=== PATIENT | female | born 1950 | race Two or more races ===

== ENCOUNTER 2017-01-10 14:11 | Inpatient (IN) | payer BC ==
[2017-01-10] VITALS (8 sets, daily range): BP systolic 150–192; BP diastolic 66–76
[~2017-01-10] VITALS: Ht 157.5 cm; Wt 67.6 kg
[2017-01-10] MEDS ORDERED: DEXTROSE (50%) 50ML SYRG IV PRN (15:30)
[2017-01-10] MEDS ORDERED: NITROGLYCERIN 0.4 MG SL TAB SL PRN ×2 (15:30)
[2017-01-10] MEDS ORDERED: MORPHINE SULF INJ 2 MG/ML SYRINGE 1ML IV PRN ×2 (15:30)
[2017-01-10] MEDS ORDERED: ASPirin-EC 81 mg tab PO ONE (15:58)
[2017-01-10] MEDS ORDERED: PARoxetine 20 MG TAB PO ONE (16:00)
[2017-01-10] MEDS ORDERED: CLOPIDOGREL BISULFATE 75 MG TAB PO ONE (16:00)
[2017-01-10] MEDS ORDERED: LOSARTAN POTASSIUM 50 MG TAB PO ONE (16:00)
[2017-01-10 16:34] LABS: Basophils # (auto) 0 uL; Basophils % (auto) 0.4 % (0.0-2.0); Eosinophils # (auto) 0.2 uL; Eosinophils % (auto) 2.1 % (0.0-7.0); Hematocrit 43.4 % (36.0-46.0); Hemoglobin 14.4 g/dL (12.2-16.2); Lymphocytes # (auto) 2.1 uL; Lymphocytes % (auto) 22.7 % (10.0-50.0); Mean Corpuscular Hemoglobin 30.9 pg (28.0-32.0); Mean Corpuscular Hgb Conc. 33.2 g/dL (32.0-36.0); Mean Corpuscular Volume 92.9 fL (80.0-100.0); Monocytes # (auto) 0.9 uL; Monocytes % (auto) 10.1 % (0.0-12.0); Neutrophils # (auto) 5.9 uL; Neutrophils % (auto) 64.7 % (37.0-80.0); Platelet Count (auto) 232 10^3/uL (140-450); Red Cell Distribution Width 13.4 % (11.6-16.0); White Blood Cell 9.1 10^3/uL (4.4-10.8)
[2017-01-10 16:54] LABS: Albumin 3.3 g/dL (3.4-5.0); Calcium 9.1 mg/dL (8.5-10.1); Chloride 101 mmol/L (98-107); Potassium 3.7 mmol/L (3.5-5.1); Sodium 138 mmol/L (136-145)
[2017-01-10 16:57] LABS: Anion Gap 10 (5-15); Aspartate Aminotransferase 33 U/L (15-37); BUN/Creatinine Ratio 11.9; Blood Urea Nitrogen 8 mg/dL (7-18); Carbon Dioxide 27 mmol/L (21-32); GFR African American 113 mL/min; GFR Non-African American 93 mL/min; Glucose 268 mg/dL (74-106)
[2017-01-10] MEDS: InsuLIN REG 1unit/0.01ml Soln (100units/ml) SC SCH ×2 (17:00→22:15)
[2017-01-10 17:02] LABS: Alkaline Phosphatase 108 U/L (45-117); Bilirubin, Total 0.3 mg/dL (0.2-1.0); Total Protein 6.9 g/dL (6.4-8.2)
[2017-01-10] MEDS: ACCU-CHEK COMFORT CURVE STRIP VI SCH ×2 (17:50→22:16)
[2017-01-10] MEDS: hydrALAZINE HCL 20 MG/ML VL IV PRN (17:54)
[2017-01-10 18:08] LABS: Urine Bilirubin Negative (Negative); Urine Blood Negative /uL (Negative); Urine Color Yellow (Yellow); Urine Nitrite Negative (Negative); Urine RBC 3 /hpf (0 - 4); Urine Squamous Epithelial Cell FEW /hpf (<5); Urine Urobilinogen Normal (Negative)
[2017-01-10 18:11] LABS: Urine Glucose 3+ mg/dL (Normal); Urine Ketone 1+ (Negative)
[2017-01-10] MEDS: SODIUM CHLOR 0.9% PF (SALINE LOCK) 10ML VIAL IV SCH (22:04)
[2017-01-10] MEDS: ATORVASTATIN 20 MG TAB PO SCH (22:05)
[2017-01-10] MEDS: METOPROLOL TARTRATE 50 MG TAB PO SCH (22:06)
[2017-01-11] VITALS (14 sets, daily range): BP systolic 146–189; BP diastolic 48–96
[2017-01-11] MEDS: hydrALAZINE HCL 20 MG/ML VL IV PRN ×2 (00:28→17:12)
[2017-01-11] MEDS ORDERED: cloNIDine HCL 0.1 MG TAB PO ONE (04:30)
[2017-01-11] MEDS: LEVOTHYROXINE SODIUM 100 MCG TAB PO SCH (06:12)
[2017-01-11] MEDS: SODIUM CHLOR 0.9% PF (SALINE LOCK) 10ML VIAL IV SCH ×3 (06:12→22:18)
[2017-01-11] MEDS: InsuLIN REG 1unit/0.01ml Soln (100units/ml) SC SCH ×4 (06:17→22:21)
[2017-01-11] MEDS: ACCU-CHEK COMFORT CURVE STRIP VI SCH ×4 (06:17→22:17)
[2017-01-11] MEDS: ASPirin-EC 81 mg tab PO SCH (09:35)
[2017-01-11] MEDS: METOPROLOL TARTRATE 50 MG TAB PO SCH (09:36)
[2017-01-11] MEDS: LOSARTAN POTASSIUM 50 MG TAB PO SCH (09:36)
[2017-01-11] MEDS: CLOPIDOGREL BISULFATE 75 MG TAB PO SCH (09:36)
[2017-01-11] MEDS: PARoxetine 20 MG TAB PO SCH (09:36)
[2017-01-11] MEDS: SODIUM CHLORIDE 0.9% 1,000 ML IV SCH (10:36)
[2017-01-11] MEDS ORDERED: MET50T (11:02)
[2017-01-11] MEDS ORDERED: GLIP-116 (11:02)
[2017-01-11] MEDS ORDERED: CLOP75TA41 PO (11:02)
[2017-01-11] MEDS ORDERED: PAR20T (11:02)
[2017-01-11] MEDS ORDERED: LEVO100T8 PO (11:02)
[2017-01-11] MEDS ORDERED: SIMV-13 (11:02)
[2017-01-11] MEDS ORDERED: METF-312 PO (11:02)
[2017-01-11] MEDS: ATORVASTATIN 20 MG TAB PO SCH (22:22)
[2017-01-11] MEDS: METOPROLOL TARTRATE 25 MG TAB PO SCH (22:23)
[2017-01-12] VITALS (7 sets, daily range): BP systolic 154–183; BP diastolic 57–84
[2017-01-12] MEDS: hydrALAZINE HCL 20 MG/ML VL IV PRN ×3 (01:54→17:56)
[2017-01-12] MEDS: SODIUM CHLORIDE 0.9% 1,000 ML IV SCH ×2 (02:55→19:35)
[2017-01-12 05:29] LABS: Basophils # (auto) 0.1 uL; Basophils % (auto) 0.6 % (0.0-2.0); Eosinophils # (auto) 0.3 uL; Eosinophils % (auto) 2.8 % (0.0-7.0); Hematocrit 39.9 % (36.0-46.0); Hemoglobin 13.4 g/dL (12.2-16.2); Lymphocytes % (auto) 22.1 % (10.0-50.0); Mean Corpuscular Hgb Conc. 33.5 g/dL (32.0-36.0); Mean Corpuscular Volume 92.3 fL (80.0-100.0); Mean Platelet Volume 9.2 fL (7.4-10.4); Monocytes % (auto) 11.6 % (0.0-12.0); Neutrophils # (auto) 5.6 uL; Neutrophils % (auto) 62.9 % (37.0-80.0); Platelet Count (auto) 223 10^3/uL (140-450); Red Cell Distribution Width 13.1 % (11.6-16.0)
[2017-01-12 05:50] LABS: Potassium 3.4 mmol/L (3.5-5.1)
[2017-01-12 05:53] LABS: Albumin 3.1 g/dL (3.4-5.0); BUN/Creatinine Ratio 21.8; Calcium 8.7 mg/dL (8.5-10.1)
[2017-01-12 05:56] LABS: Bilirubin, Total 0.5 mg/dL (0.2-1.0); Total Protein 6.3 g/dL (6.4-8.2)
[2017-01-12] MEDS: SODIUM CHLOR 0.9% PF (SALINE LOCK) 10ML VIAL IV SCH ×3 (06:00→22:29)
[2017-01-12] MEDS: ACCU-CHEK COMFORT CURVE STRIP VI SCH ×4 (06:22→22:18)
[2017-01-12] MEDS: InsuLIN REG 1unit/0.01ml Soln (100units/ml) SC SCH ×4 (06:26→22:23)
[2017-01-12] MEDS: LEVOTHYROXINE SODIUM 100 MCG TAB PO SCH (06:29)
[2017-01-12] MEDS: ASPirin-EC 81 mg tab PO SCH (09:59)
[2017-01-12] MEDS: PARoxetine 20 MG TAB PO SCH (09:59)
[2017-01-12] MEDS: LOSARTAN POTASSIUM 50 MG TAB PO SCH (09:59)
[2017-01-12] MEDS: CLOPIDOGREL BISULFATE 75 MG TAB PO SCH (09:59)
[2017-01-12] MEDS: METOPROLOL TARTRATE 25 MG TAB PO SCH (10:00)
[2017-01-12] MEDS ORDERED: POTASSIUM CHLORIDE 20 MEQ, LIDOCAINE 1% (LOCAL ANESTH.) 2 ML in SODIUM CHL 0.9% 100 ML IV ONE (11:15)
[2017-01-12] MEDS ORDERED: MULTIPLE VITAMIN TAB PO ONE (14:30)
[2017-01-12] MEDS ORDERED: MAGNESIUM CITRATE SOLUTION 300 ML BTL PO ONE (14:30)
[2017-01-12] MEDS ORDERED: ASCORBIC ACID 500 MG TAB PO ONE (14:30)
[2017-01-12] MEDS ORDERED: METOPROLOL TARTRATE 25 MG TAB PO ONE (14:30)
[2017-01-12] MEDS ORDERED: LOSARTAN POTASSIUM 50 MG TAB PO ONE (14:30)
[2017-01-12] MEDS: ATORVASTATIN 20 MG TAB PO SCH (22:28)
[2017-01-12] MEDS: ASCORBIC ACID 500 MG TAB PO SCH (22:28)
[2017-01-13] VITALS (7 sets, daily range): BP systolic 133–193; BP diastolic 51–80
[2017-01-13] MEDS: hydrALAZINE HCL 20 MG/ML VL IV PRN ×2 (00:56→06:39)
[2017-01-13] MEDS: SODIUM CHLOR 0.9% PF (SALINE LOCK) 10ML VIAL IV SCH ×3 (06:00→22:07)
[2017-01-13] MEDS: InsuLIN REG 1unit/0.01ml Soln (100units/ml) SC SCH ×4 (06:33→22:05)
[2017-01-13] MEDS: LEVOTHYROXINE SODIUM 100 MCG TAB PO SCH (06:34)
[2017-01-13] MEDS: ACCU-CHEK COMFORT CURVE STRIP VI SCH ×4 (06:34→22:09)
[2017-01-13 06:40] LABS: Potassium 3.7 mmol/L (3.5-5.1)
[2017-01-13 06:43] LABS: Albumin 3.4 g/dL (3.4-5.0); BUN/Creatinine Ratio 18.2
[2017-01-13 06:46] LABS: Bilirubin, Total 0.6 mg/dL (0.2-1.0); Total Protein 6.7 g/dL (6.4-8.2)
[2017-01-13] MEDS: ASCORBIC ACID 500 MG TAB PO SCH ×2 (10:13→22:07)
[2017-01-13] MEDS: CLOPIDOGREL BISULFATE 75 MG TAB PO SCH (10:13)
[2017-01-13] MEDS: MULTIPLE VITAMIN TAB PO SCH (10:13)
[2017-01-13] MEDS: ASPirin-EC 81 mg tab PO SCH (10:13)
[2017-01-13] MEDS: MECLIZINE HCL 25 MG TAB PO PRN (10:13)
[2017-01-13] MEDS: PARoxetine 20 MG TAB PO SCH (10:13)
[2017-01-13] MEDS: NIFEdipine ER 30 MG TAB PO SCH (10:16)
[2017-01-13] MEDS: LOSARTAN POTASSIUM 50 MG TAB PO SCH (10:16)
[2017-01-13] MEDS: METOPROLOL TARTRATE 25 MG TAB PO SCH (10:18)
[2017-01-13] MEDS: SODIUM CHLORIDE 0.9% 1,000 ML IV SCH (12:15)
[2017-01-13] MEDS: HYDROcodone-ACET 5/325MG TAB PO PRN (15:29)
[2017-01-13] MEDS: ATORVASTATIN 20 MG TAB PO SCH (22:07)
[2017-01-14] MEDS: HYDROcodone-ACET 5/325MG TAB PO PRN ×3 (04:34→17:25)
[2017-01-14] MEDS: SODIUM CHLORIDE 0.9% 1,000 ML IV SCH ×3 (04:38→23:01)
[2017-01-14 05:00] VITALS: BP 163/64
[2017-01-14] MEDS: SODIUM CHLOR 0.9% PF (SALINE LOCK) 10ML VIAL IV SCH ×3 (05:52→21:49)
[2017-01-14] MEDS: LEVOTHYROXINE SODIUM 100 MCG TAB PO SCH (05:52)
[2017-01-14] MEDS: hydrALAZINE HCL 20 MG/ML VL IV PRN (05:52)
[2017-01-14] MEDS: InsuLIN REG 1unit/0.01ml Soln (100units/ml) SC SCH ×4 (06:03→22:17)
[2017-01-14 06:22] LABS: Albumin 3.3 g/dL (3.4-5.0); BUN/Creatinine Ratio 22.6; Bilirubin, Total 0.5 mg/dL (0.2-1.0); Calcium 9.3 mg/dL (8.5-10.1); Potassium 3.7 mmol/L (3.5-5.1); Total Protein 6.7 g/dL (6.4-8.2)
[2017-01-14] MEDS: ACCU-CHEK COMFORT CURVE STRIP VI SCH ×4 (06:23→22:29)
[2017-01-14 08:00] VITALS: BP 163/64
[2017-01-14 09:00] VITALS: BP 138/49
[2017-01-14] MEDS ORDERED: metFORMIN HYDROCHLORIDE 500 MG TAB PO ONE (10:00)
[2017-01-14] MEDS: LOSARTAN POTASSIUM 50 MG TAB PO SCH (10:00)
[2017-01-14] MEDS: NIFEdipine ER 30 MG TAB PO SCH (10:49)
[2017-01-14] MEDS: METOPROLOL TARTRATE 25 MG TAB PO SCH (10:49)
[2017-01-14] MEDS: ASPirin-EC 81 mg tab PO SCH (10:50)
[2017-01-14] MEDS: CLOPIDOGREL BISULFATE 75 MG TAB PO SCH (10:50)
[2017-01-14] MEDS: MULTIPLE VITAMIN TAB PO SCH (10:51)
[2017-01-14] MEDS: PARoxetine 20 MG TAB PO SCH (10:51)
[2017-01-14] MEDS: ASCORBIC ACID 500 MG TAB PO SCH ×2 (10:51→21:49)
[2017-01-14 13:00] VITALS: BP 112/72
[2017-01-14] MEDS: MECLIZINE HCL 25 MG TAB PO PRN (13:36)
[2017-01-14 17:25] VITALS: BP_SYST 144; BP_SYST 151; BP_DIAS 53; BP_DIAS 72
[2017-01-14] MEDS: metFORMIN HYDROCHLORIDE 500 MG TAB PO SCH (17:25)
[2017-01-14] MEDS: ATORVASTATIN 20 MG TAB PO SCH (21:49)
[2017-01-14 22:00] VITALS: BP 138/58
[2017-01-15 05:00] VITALS: BP 179/68
[2017-01-15 05:37] LABS: BUN/Creatinine Ratio 19.7; Potassium 3.4 mmol/L (3.5-5.1)
[2017-01-15] MEDS: metFORMIN HYDROCHLORIDE 500 MG TAB PO SCH ×2 (06:18→17:33)
[2017-01-15] MEDS: SODIUM CHLOR 0.9% PF (SALINE LOCK) 10ML VIAL IV SCH ×3 (06:18→21:44)
[2017-01-15] MEDS: LEVOTHYROXINE SODIUM 100 MCG TAB PO SCH (06:18)
[2017-01-15] MEDS: hydrALAZINE HCL 20 MG/ML VL IV PRN ×2 (06:19→18:08)
[2017-01-15] MEDS: ACCU-CHEK COMFORT CURVE STRIP VI SCH ×4 (06:42→22:21)
[2017-01-15] MEDS: InsuLIN REG 1unit/0.01ml Soln (100units/ml) SC SCH ×6 (06:42→22:21)
[2017-01-15 08:00] VITALS: BP 135/61
[2017-01-15 08:18] VITALS: BP 135/61
[2017-01-15] MEDS: HYDROcodone-ACET 5/325MG TAB PO PRN ×2 (09:59→17:34)
[2017-01-15] MEDS: METOPROLOL TARTRATE 25 MG TAB PO SCH (10:00)
[2017-01-15] MEDS: MULTIPLE VITAMIN TAB PO SCH (10:00)
[2017-01-15] MEDS: ASCORBIC ACID 500 MG TAB PO SCH ×2 (10:01→21:44)
[2017-01-15] MEDS: CLOPIDOGREL BISULFATE 75 MG TAB PO SCH (10:01)
[2017-01-15] MEDS: LOSARTAN POTASSIUM 50 MG TAB PO SCH (10:02)
[2017-01-15] MEDS: ASPirin-EC 81 mg tab PO SCH (10:02)
[2017-01-15] MEDS: PARoxetine 20 MG TAB PO SCH (10:02)
[2017-01-15] MEDS: NIFEdipine ER 30 MG TAB PO SCH (10:03)
[2017-01-15] MEDS ORDERED: POTASSIUM CHLORIDE 40 MEQ, LIDOCAINE 1% (LOCAL ANESTH.) 4 ML in SODIUM CHL 0.9% 250 ML IV ONE (11:30)
[2017-01-15 12:32] VITALS: BP 145/61
[2017-01-15 16:44] VITALS: BP 178/62
[2017-01-15] MEDS: ATORVASTATIN 20 MG TAB PO SCH (21:44)
[2017-01-15 22:00] VITALS: BP 153/62
[2017-01-15] MEDS ORDERED: METO25TA5 PO (23:01)
[2017-01-15] MEDS ORDERED: SIMV-8 PO (23:01)
[2017-01-15] MEDS ORDERED: ATOR20TA PO (23:01)
[2017-01-16] MEDS: SODIUM CHLORIDE 0.9% 1,000 ML IV SCH (00:38)
[2017-01-16 05:00] VITALS: BP 161/70
[2017-01-16 06:14] LABS: BUN/Creatinine Ratio 15.4; Calcium 8.4 mg/dL (8.5-10.1); Potassium 3.6 mmol/L (3.5-5.1)
[2017-01-16] MEDS: SODIUM CHLOR 0.9% PF (SALINE LOCK) 10ML VIAL IV SCH ×3 (06:20→21:56)
[2017-01-16] MEDS: LEVOTHYROXINE SODIUM 100 MCG TAB PO SCH (06:21)
[2017-01-16] MEDS: metFORMIN HYDROCHLORIDE 500 MG TAB PO SCH ×2 (06:21→18:02)
[2017-01-16] MEDS: InsuLIN REG 1unit/0.01ml Soln (100units/ml) SC SCH ×4 (06:33→22:16)
[2017-01-16] MEDS: ACCU-CHEK COMFORT CURVE STRIP VI SCH ×4 (06:33→22:16)
[2017-01-16] MEDS: hydrALAZINE HCL 20 MG/ML VL IV PRN ×2 (06:40→18:23)
[2017-01-16 09:12] VITALS: BP 138/60
[2017-01-16] MEDS: ASCORBIC ACID 500 MG TAB PO SCH ×2 (10:00→21:56)
[2017-01-16] MEDS: CLOPIDOGREL BISULFATE 75 MG TAB PO SCH (10:00)
[2017-01-16] MEDS: MULTIPLE VITAMIN TAB PO SCH (10:00)
[2017-01-16] MEDS: PARoxetine 20 MG TAB PO SCH (10:00)
[2017-01-16] MEDS: ASPirin-EC 81 mg tab PO SCH (10:00)
[2017-01-16] MEDS: LOSARTAN POTASSIUM 50 MG TAB PO SCH (10:01)
[2017-01-16] MEDS: NIFEdipine ER 30 MG TAB PO SCH (10:02)
[2017-01-16] MEDS: METOPROLOL TARTRATE 25 MG TAB PO SCH (10:02)
[2017-01-16] MEDS: ONDANSETRON HCL 4 MG/2 ML VIAL IV PRN (10:03)
[2017-01-16 12:11] VITALS: BP 139/51
[2017-01-16] MEDS: HYDROcodone-ACET 5/325MG TAB PO PRN (12:45)
[2017-01-16 16:29] VITALS: BP 171/63
[2017-01-16 21:30] VITALS: BP 152/60
[2017-01-16] MEDS: ATORVASTATIN 20 MG TAB PO SCH (21:56)
[2017-01-17] MEDS: SODIUM CHLORIDE 0.9% 1,000 ML IV SCH ×2 (00:03→15:58)
[2017-01-17] MEDS: HYDROcodone-ACET 5/325MG TAB PO PRN ×2 (03:19→10:41)
[2017-01-17 05:00] VITALS: BP 130/59
[2017-01-17] MEDS: SODIUM CHLOR 0.9% PF (SALINE LOCK) 10ML VIAL IV SCH ×2 (06:26→15:10)
[2017-01-17] MEDS: LEVOTHYROXINE SODIUM 100 MCG TAB PO SCH (06:30)
[2017-01-17] MEDS: ACCU-CHEK COMFORT CURVE STRIP VI SCH ×3 (06:30→17:42)
[2017-01-17] MEDS: InsuLIN REG 1unit/0.01ml Soln (100units/ml) SC SCH ×3 (06:31→17:43)
[2017-01-17 08:00] VITALS: BP 170/72
[2017-01-17] MEDS: metFORMIN HYDROCHLORIDE 500 MG TAB PO SCH ×2 (08:32→17:58)
[2017-01-17 08:51] VITALS: BP 170/72
[2017-01-17] MEDS: CLOPIDOGREL BISULFATE 75 MG TAB PO SCH (09:01)
[2017-01-17] MEDS: MULTIPLE VITAMIN TAB PO SCH (09:02)
[2017-01-17] MEDS: ASCORBIC ACID 500 MG TAB PO SCH (09:02)
[2017-01-17] MEDS: ASPirin-EC 81 mg tab PO SCH (09:02)
[2017-01-17] MEDS: METOPROLOL TARTRATE 25 MG TAB PO SCH (09:02)
[2017-01-17] MEDS: PARoxetine 20 MG TAB PO SCH (09:02)
[2017-01-17] MEDS: LOSARTAN POTASSIUM 50 MG TAB PO SCH (09:03)
[2017-01-17] MEDS: NIFEdipine ER 30 MG TAB PO SCH (09:03)
[2017-01-17] MEDS: hydrALAZINE HCL 20 MG/ML VL IV PRN (10:41)
[2017-01-17] MEDS: ONDANSETRON HCL 4 MG/2 ML VIAL IV PRN (11:50)
[2017-01-17 12:49] VITALS: BP 159/76
[2017-01-17 16:42] VITALS: BP 157/64
[2017-01-17 16:58] VITALS: BP 157/64
== END 2017-01-17 18:32 | DRG 309 ==
LOC: TELE-WESTW 14:11
PROVIDERS: ADMIT Internal Medicine; ATTEND Internal Medicine
DX: R00.1 Bradycardia, unspecified (principal); I69.354 Hemiplegia and hemiparesis following cerebral infarction affecting left non-dominant side; E44.0 Moderate protein-calorie malnutrition; R55 Syncope and collapse; R53.1 Weakness; K21.9 Gastro-esophageal reflux disease without esophagitis; E78.5 Hyperlipidemia, unspecified; E03.9 Hypothyroidism, unspecified; E11.65 Type 2 diabetes mellitus with hyperglycemia; I10 Essential (primary) hypertension; F32.9 Major depressive disorder, single episode, unspecified; Z79.82 Long term (current) use of aspirin; Z90.710 Acquired absence of both cervix and uterus; I25.2 Old myocardial infarction; Z79.02 Long term (current) use of antithrombotics/antiplatelets; Z95.1 Presence of aortocoronary bypass graft; Z88.5 Allergy status to narcotic agent; Z88.1 Allergy status to other antibiotic agents; Z88.8 Allergy status to other drugs, medicaments and biological substances; Z87.440 Personal history of urinary (tract) infections; Z68.27 Body mass index [BMI] 27.0-27.9, adult
CPT/HCPCS: 36415; 71010; 80048; 80053; 81001; 82962; 84484; 85025; 87081; 93005; 97001; 97110; 97116; 97530; J1815; J2001; J2405

== ENCOUNTER 2018-03-17 22:06 | Emergency (ER) | payer BC ==
[~2018-03-17] VITALS: Ht 157.5 cm; Wt 68.0 kg
[~2018-03-17 22:06] MED LIST: GLIP-115 PO; HYDR-4683 PO; LEVO100T8 PO; LOS25T GT; METF-370 PO; NAPR375T27 PO; PAR20T PO
[2018-03-17 22:50] VITALS: BP 172/65
== END 2018-03-17 23:37 | disposition left against medical advice (07) ==
LOC: EDBD 22:06 → ER 22:10
DX: R53.1 Weakness (principal); Z53.21 Procedure and treatment not carried out due to patient leaving prior to being seen by health care provider
CPT/HCPCS: 93005

== ENCOUNTER 2018-07-07 07:04 | Emergency (ER) | payer BC ==
[~2018-07-07] VITALS: Ht 157.5 cm; Wt 68.0 kg
[2018-07-07] MEDS ORDERED: SODIUM CHLORIDE 0.9% 1,000 ML IV ONE (08:31)
[2018-07-07] MEDS ORDERED: MORPHINE SULF INJ 2 MG/ML SYRINGE 1ML IV ONE (08:45)
[2018-07-07] MEDS ORDERED: PROMETHAZINE HCL 25 MG/ML 1ML IV ONE (08:45)
[2018-07-07 09:08] LABS: INR 0.92 (0.9-1.15); Partial Thromboplastin Time 24.9 sec (23.78-33.04); Prothrombin Time 9.9 sec (9.27-12.13)
[2018-07-07 13:25] LABS: Basophils # (auto) 0.1 uL; Basophils % (auto) 0.7 % (0.0-2.0); Eosinophils # (auto) 0 uL; Hemoglobin 8.7 g/dL (12.2-16.2); Lymphocytes # (auto) 1.6 uL; Lymphocytes % (auto) 21.1 % (10.0-50.0); Mean Corpuscular Hemoglobin 25.6 pg (28.0-32.0); Mean Corpuscular Hgb Conc. 31.1 g/dL (32.0-36.0); Mean Corpuscular Volume 82.2 fL (80.0-100.0); Monocytes # (auto) 0.9 uL; Monocytes % (auto) 12.1 % (0.0-12.0); Neutrophils # (auto) 4.9 uL; Neutrophils % (auto) 66.1 % (37.0-80.0); Nucleated Red Blood Cells % 0.2 %; Platelet Count (auto) 230 10^3/uL (140-450); Red Blood Cells 3.41 10^6/uL (4.0-5.20); White Blood Cell 7.4 10^3/uL (4.4-10.8)
[2018-07-07 13:26] LABS: Red Cell Distribution Width 20.9 % (11.8-14.3)
[2018-07-07 13:43] LABS: Albumin 4.1 g/dL (3.4-5.0); BUN/Creatinine Ratio 26.9; Bilirubin, Total 1.3 mg/dL (0.2-1.0); Calcium 8.7 mg/dL (8.5-10.1); Potassium 3.7 mmol/L (3.5-5.1); Total Protein 7.8 g/dL (6.4-8.2)
[2018-07-07 15:41] LABS: Urine Bacteria FEW /hpf (None Seen); Urine Blood 2+ /uL (Negative); Urine Specific Gravity 1.013 (1.001-1.035); Urine WBC 682 /hpf (0 - 5); Urine WBC Clumps PRESENT /hpf (None Seen)
[2018-07-07] MEDS ORDERED: cefTRIAXone 1GM/10ml IVPUSH 10 ML IV ONE (16:15)
[2018-07-07 16:32] VITALS: BP 144/53
== END 2018-07-07 16:13 | disposition home or self-care (01) ==
LOC: EDBD 07:04 → ER 07:04
DX: M54.6 Pain in thoracic spine (principal); R51 Headache; G89.29 Other chronic pain; E11.21 Type 2 diabetes mellitus with diabetic nephropathy; N39.0 Urinary tract infection, site not specified; I48.91 Unspecified atrial fibrillation; K21.9 Gastro-esophageal reflux disease without esophagitis; E78.5 Hyperlipidemia, unspecified; I10 Essential (primary) hypertension; Z88.5 Allergy status to narcotic agent; Z88.1 Allergy status to other antibiotic agents; Z79.84 Long term (current) use of oral hypoglycemic drugs; Z79.899 Other long term (current) drug therapy; Z86.73 Personal history of transient ischemic attack (TIA), and cerebral infarction without residual deficits
CPT/HCPCS: 36415; 80053; 81001; 83735; 84443; 85025; 85610; 85730; 93005; 94761; 96374; 96375; 99285; J0696; J2270; J2550; J7030

== ENCOUNTER 2019-03-11 11:09 | Inpatient (IN) | payer OTHER | END 2019-03-15 16:40 | disposition home or self-care (01) | LOC: TELE-WESTW 03-14 13:22 | DX: I21.4 Non-ST elevation (NSTEMI) myocardial infarction (principal); I63.9 Cerebral infarction, unspecified; I50.43 Acute on chronic combined systolic (congestive) and diastolic (congestive) heart failure; I42.9 Cardiomyopathy, unspecified; I11.0 Hypertensive heart disease with heart failure; I50.9 Heart failure, unspecified; E11.9 Type 2 diabetes mellitus without complications; E11.51 Type 2 diabetes mellitus with diabetic peripheral angiopathy without gangrene ==